=== PATIENT | male | born 1985 | race African-American/Black ===

== ENCOUNTER 2017-03-13 11:29 | Emergency (ER) | payer MEDICAID, OTHER ==
[~2017-03-13] VITALS: Ht 170.2 cm; Wt 60.0 kg
[~2017-03-13 11:29] MED LIST: CLOP75TA2; MOTRIN
[2017-03-13 11:36] VITALS: BP 102/76
[2017-03-13] MEDS ORDERED: KETOROLAC 60MG/2ML VIAL IM ONE (12:45)
== END 2017-03-13 15:15 | disposition home or self-care (01) ==
LOC: ER 11:30
DX: S20.212A Contusion of left front wall of thorax, initial encounter (principal); S39.012A Strain of muscle, fascia and tendon of lower back, initial encounter; S16.1XXA Strain of muscle, fascia and tendon at neck level, initial encounter; F17.200 Nicotine dependence, unspecified, uncomplicated; E11.9 Type 2 diabetes mellitus without complications; V49.9XXA Car occupant (driver) (passenger) injured in unspecified traffic accident, initial encounter; Y93.89 Activity, other specified; Y92.89 Other specified places as the place of occurrence of the external cause; Y99.8 Other external cause status
CPT/HCPCS: 71100; 96372; 99284; J1885

== ENCOUNTER 2018-07-25 23:57 | Emergency (ER) | payer MEDICAID ==
[~2018-07-25] VITALS: Ht 175.3 cm; Wt 61.0 kg
[~2018-07-25 23:57] MED LIST changes: +CLOP75TA16; -CLOP75TA2
[2018-07-26] MEDS ORDERED: IPRATROPIUM BROMIDE (0.02%) 0.5MG/2.5ML NEB HHN STA (00:31)
[2018-07-26] MEDS ORDERED: PREDNISONE 20MG TABLET PO STA (00:31)
[2018-07-26] MEDS ORDERED: ALBUTEROL (0.083%) 2.5MG/3ML NEB HHN STA (00:31)
[2018-07-26 02:34] VITALS: BP 104/54
== END 2018-07-26 02:36 | disposition home or self-care (01) ==
LOC: ER 07-26 02:28
DX: J06.9 Acute upper respiratory infection, unspecified (principal); F17.200 Nicotine dependence, unspecified, uncomplicated; J45.909 Unspecified asthma, uncomplicated; Z98.890 Other specified postprocedural states
CPT/HCPCS: 71045; 93005; 94640; 99284; J7512; J7611

== ENCOUNTER 2018-10-08 11:39 | Emergency (ER) | payer MEDICAID ==
[~2018-10-08] VITALS: Ht 172.7 cm; Wt 65.9 kg
[2018-10-08] MEDS ORDERED: IBUPROFEN 600MG TABLET PO ONE (13:00)
[2018-10-08 13:17] VITALS: BP 94/54
== END 2018-10-08 13:32 | disposition home or self-care (01) ==
LOC: ER 12:48
DX: M79.672 Pain in left foot (principal); M79.671 Pain in right foot; J45.909 Unspecified asthma, uncomplicated; F12.10 Cannabis abuse, uncomplicated; F17.200 Nicotine dependence, unspecified, uncomplicated; Z79.899 Other long term (current) drug therapy
CPT/HCPCS: 99283

== ENCOUNTER 2020-10-06 03:04 | Emergency (ER) | payer MEDICAID ==
[~2020-10-06] VITALS: Ht 175.3 cm; Wt 62.0 kg
[~2020-10-06 03:04] MED LIST changes: -CLOP75TA16; +CLOP75TA4
[2020-10-06] MEDS ORDERED: PREDNISONE 20MG TABLET PO ONE (04:00)
[2020-10-06 04:39] VITALS: BP 115/81
== END 2020-10-06 04:41 | disposition home or self-care (01) ==
LOC: ER 03:04
DX: T78.1XXA Other adverse food reactions, not elsewhere classified, initial encounter (principal); J45.909 Unspecified asthma, uncomplicated; F12.10 Cannabis abuse, uncomplicated; F17.210 Nicotine dependence, cigarettes, uncomplicated; Z91.018 Allergy to other foods; X58.XXXA Exposure to other specified factors, initial encounter
CPT/HCPCS: 99283; J7512

== ENCOUNTER 2021-08-11 02:03 | Emergency (ER) | payer MEDICAID ==
[~2021-08-11] VITALS: Ht 175.3 cm; Wt 60.0 kg
[~2021-08-11 02:03] MED LIST changes: +CLOP-31; -CLOP75TA4
[2021-08-11 02:10] VITALS: BP 107/69
[2021-08-11] MEDS ORDERED: ACET-2708 PO (04:21)
[2021-08-11] MEDS ORDERED: OFLO5DRO4 LEFT EAR (04:21)
== END 2021-08-11 04:30 | disposition home or self-care (01) ==
LOC: ER 02:03
DX: S00.412A Abrasion of left ear, initial encounter (principal); H60.92 Unspecified otitis externa, left ear; F12.10 Cannabis abuse, uncomplicated; J45.909 Unspecified asthma, uncomplicated; Z91.010 Allergy to peanuts; X58.XXXA Exposure to other specified factors, initial encounter; Y93.89 Activity, other specified; Y92.89 Other specified places as the place of occurrence of the external cause; Y99.8 Other external cause status
CPT/HCPCS: 99283

== ENCOUNTER 2025-03-02 16:57 | Emergency (ER) | payer MEDICAID ==
[~2025-03-02] VITALS: Ht 175.3 cm; Wt 66.0 kg
[~2025-03-02 16:57] MED LIST changes: +ACET-2708 PO; +APIX5TAB MT; -CLOP-31; +FAMO-135 MT; -MOTRIN
[2025-03-02 16:59] VITALS: O2SAT 98
[2025-03-02] MEDS: KETOROLAC 30MG/ML VIAL IM ONE (18:15)
[2025-03-02] MEDS ORDERED: TOPUD MT (19:40)
[2025-03-02] MEDS ORDERED: EPIN0.3P3 IM (19:40)
[2025-03-02] MEDS ORDERED: NAPR-681 MT (19:40)
[2025-03-02 20:32] VITALS: BP 115/77; PULSE 80; RESP 16; TEMP 36.7; O2SAT 98
== END 2025-03-02 20:45 | disposition home or self-care (01) ==
LOC: ER 16:57
DX: M79.671 Pain in right foot (principal); M54.50 Low back pain, unspecified; F12.90 Cannabis use, unspecified, uncomplicated; J45.909 Unspecified asthma, uncomplicated; F17.210 Nicotine dependence, cigarettes, uncomplicated; Z79.899 Other long term (current) drug therapy; Z98.890 Other specified postprocedural states; Z79.01 Long term (current) use of anticoagulants; Z91.018 Allergy to other foods; V43.52XA Car driver injured in collision with other type car in traffic accident, initial encounter; Y93.89 Activity, other specified; Y92.89 Other specified places as the place of occurrence of the external cause; Y99.8 Other external cause status
CPT/HCPCS: 99283; 96372; J1885